=== PATIENT | female | born 1930 | race Caucasian/White ===

== ENCOUNTER 2017-01-29 14:07 | Emergency (ER) | payer OTHER ==
[2017-01-29 15:23] LABS: BASOPHIL % 0.2 % (0-2); PLATELET COUNT 329 x10^3mcL (130-400)
[2017-01-29 15:53] LABS: CALCIUM 9.3 mg/dL (8.5-10.1); CARBON DIOXIDE 29.9 mmol/L (21-32); CHLORIDE SERUM 103 mmol/L (98-107); CREATININE SERUM 1.2 mg/dL (0.6-1.0); GLUCOSE SERUM 107 mg/dL (74-106); POTASSIUM SERUM 3.7 mmol/L (3.5-5.1); SODIUM SERUM 139 mmol/L (136-145)
[2017-01-29 15:59] LABS: ALBUMIN 3.7 g/dL (3.4-5.0); ALKALINE PHOSPHATASE 81 U/L (46-116); ALT/SGPT 13 U/L (14-59); AST/SGOT 20 U/L (15-37); BILIRUBIN TOTAL 0.56 mg/dL (0.20-1.00); LIPASE 81 IU/L (73-393)
[2017-01-29 16:04] LABS: TOTAL PROTEIN, SERUM 8.3 g/dL (6.4-8.2)
[2017-01-29 17:36] LABS: microscopic required? YES; urine erythrocyte NEGATIVE (NEGATIVE)
[2017-01-29 19:03] VITALS: BP 125/72
== END 2017-01-29 19:03 | disposition home or self-care (01) ==
LOC: ED 14:07
PROVIDERS: Emergency Medicine
DX: N39.0 Urinary tract infection, site not specified (principal); I10 Essential (primary) hypertension; Z88.0 Allergy status to penicillin
CPT/HCPCS: 72072; J7030; Q0092

== ENCOUNTER 2017-02-19 14:22 | Emergency (ER) | payer OTHER ==
[2017-02-19 17:59] LABS: BASOPHIL % 0.4 % (0-2)
[2017-02-19 18:08] LABS: PLATELET COUNT 461 x10^3mcL (130-400); RED CELL DISTRIBUTION WIDTH 15.1 % (11.5-14.5)
[2017-02-19 18:11] LABS: ALBUMIN 3.4 g/dL (3.4-5.0); ALKALINE PHOSPHATASE 85 U/L (46-116); ALT/SGPT 20 U/L (14-59); AST/SGOT 17 U/L (15-37); BILIRUBIN TOTAL 0.36 mg/dL (0.20-1.00); CHLORIDE SERUM 98 mmol/L (98-107); CREATININE SERUM 0.8 mg/dL (0.6-1.0); GLUCOSE SERUM 116 mg/dL (74-106); SODIUM SERUM 135 mmol/L (136-145)
[2017-02-19 18:22] LABS: POTASSIUM SERUM 2.8 mmol/L (3.5-5.1)
[2017-02-19 20:35] VITALS: BP 137/67
== END 2017-02-19 20:35 | disposition home or self-care (01) ==
LOC: ED 14:22
DX: R10.9 Unspecified abdominal pain (principal); R11.10 Vomiting, unspecified; I10 Essential (primary) hypertension; Z88.0 Allergy status to penicillin
CPT/HCPCS: J7030; Q0162

== ENCOUNTER 2017-07-07 18:52 | Emergency (ER) | payer OTHER ==
[~2017-07-07] VITALS: Ht 134.6 cm; Wt 55.9 kg
[~2017-07-07 18:52] MED LIST: ALENDRONATE SOD70 M2 PO; APAP/HYDROCODON1 T11 PO; BD LACTINEX1.4 MG PO; CLINDAMYCIN HC300 MG PO; LABETALOL HYDR300 MG PO; LEVOFLOXACIN500 M1 PO; LORAZEPAM0.5 MG PO; NOR5 PO; TRAZODONE50 M1 PO
[2017-07-07 19:04] VITALS: Ht 134.6 cm; Wt 55.9 kg
[2017-07-07 20:46] LABS: BASOPHIL % 0.4 % (0-2); PLATELET COUNT 482 x10^3mcL (130-400); RED CELL DISTRIBUTION WIDTH 16.4 % (11.5-14.5)
[2017-07-07 20:48] LABS: ALKALINE PHOSPHATASE 84 U/L (46-116); ALT/SGPT 13 U/L (14-59); AST/SGOT 18 U/L (15-37); BILIRUBIN TOTAL 0.47 mg/dL (0.20-1.00); CALCIUM 8.2 mg/dL (8.5-10.1); CARBON DIOXIDE 23.5 mmol/L (21-32); CHLORIDE SERUM 100 mmol/L (98-107); CREATININE SERUM 1.4 mg/dL (0.6-1.0); GLUCOSE SERUM 97 mg/dL (74-106); LIPASE 127 IU/L (73-393); SODIUM SERUM 135 mmol/L (136-145); TOTAL PROTEIN, SERUM 6.7 g/dL (6.4-8.2)
[2017-07-07 20:52] LABS: ALBUMIN 3.1 g/dL (3.4-5.0)
[2017-07-07 20:54] LABS: POTASSIUM SERUM 2.9 mmol/L (3.5-5.1)
[2017-07-07 21:54] VITALS: BP 155/73
== END 2017-07-07 21:54 | disposition home or self-care (01) ==
LOC: ED 18:52
PROVIDERS: Emergency Medicine
DX: S22.42XD Multiple fractures of ribs, left side, subsequent encounter for fracture with routine healing (principal); I10 Essential (primary) hypertension; Z88.0 Allergy status to penicillin; W18.39XD Other fall on same level, subsequent encounter
CPT/HCPCS: 36415; 83880; J7613; J7644

== ENCOUNTER 2017-08-08 16:47 | Emergency (ER) | payer OTHER ==
[~2017-08-08] VITALS: Ht 142.2 cm; Wt 63.5 kg
[2017-08-08 16:54] VITALS: Ht 142.2 cm; Wt 63.5 kg
[2017-08-08 21:09] LABS: BASOPHIL % 0.4 % (0-2)
[2017-08-08 21:19] LABS: CALCIUM 8.2 mg/dL (8.5-10.1); CARBON DIOXIDE 27.2 mmol/L (21-32); CHLORIDE SERUM 107 mmol/L (98-107); CREATININE SERUM 0.8 mg/dL (0.6-1.0); GLUCOSE SERUM 110 mg/dL (74-106); POTASSIUM SERUM 3.3 mmol/L (3.5-5.1); SODIUM SERUM 142 mmol/L (136-145)
[2017-08-08 21:23] LABS: ALKALINE PHOSPHATASE 67 U/L (46-116); ALT/SGPT 12 U/L (14-59); AST/SGOT 13 U/L (15-37); TOTAL PROTEIN, SERUM 7.1 g/dL (6.4-8.2)
[2017-08-08 21:26] LABS: PLATELET COUNT 475 x10^3mcL (130-400)
[2017-08-08 21:27] LABS: ALBUMIN 3.2 g/dL (3.4-5.0); rbc morphology (normal/abnorm) ABNORMAL (NORMAL)
[2017-08-08] MEDS ORDERED: ACETAMINOPHEN-H1 TA1 PO (22:35)
[2017-08-08 23:45] VITALS: BP 159/76
== END 2017-08-08 23:45 | disposition home or self-care (01) ==
LOC: ED 16:47
PROVIDERS: Emergency Medicine
DX: R60.9 Edema, unspecified (principal); I10 Essential (primary) hypertension; Z88.0 Allergy status to penicillin; Z90.89 Acquired absence of other organs; Z90.710 Acquired absence of both cervix and uterus; Z90.49 Acquired absence of other specified parts of digestive tract
CPT/HCPCS: 83880; J1940; Q0092